=== PATIENT | male | born 1955 | race Caucasian/White ===

== ENCOUNTER 2016-07-08 06:12 | Emergency (ER) | payer BC ==
[~2016-07-08] VITALS: Ht 167.6 cm; Wt 99.8 kg
[2016-07-08 06:12] VITALS: BP 158/103; PULSE 58; RESP 16; TEMP 98; O2SAT 99
[~2016-07-08 06:12] MED LIST: ACYC200O PO
--- NOTE | 2016-07-08 06:12 | NUR ---
Patient to ER bed 1 to gown for evaluation. Side rails up. Report given to DIONISIO SANFORD.
--- NOTE | 2016-07-08 06:22 | NUR ---
Pt presents to ED with c/o sharp pain at anterior left chest, radiated to L upper back, 11/06, pain comes and goes, denies numbness, started 45 mins ago. Pt diaphoretic, ambulatory, A&Ox4, denies SOB, denies N/V/D. Pt stated he has a heart attack in the past. Skin intact. Will continue to monitor
--- NOTE | 2016-07-08 06:27 | NUR ---
MD Snider at bedside examining pt
[2016-07-08] MEDS ORDERED: NITROGLYCERIN 0.4 MG TAB.SUBL SL ONE (06:30)
[2016-07-08] MEDS ORDERED: ASPIRIN 325 MG TABLET PO ONE (06:30)
--- NOTE | 2016-07-08 06:30 | NUR ---
# 20 gauge angiocath placed to R AC. Use of asceptic technique. Opsite placed over site. Blood return noted. Blood for lab drawn from site. Flushed with 10 cc of normal saline. No evidence of infiltration noted. Patient tolerated well.
--- NOTE | 2016-07-08 06:47 | NUR ---
Consent for CT chest with contrast signed by patient. Pt verbalized understanding
[2016-07-08 06:51] LABS: CREATININE 1.57 mg/dL (0.55-1.30); POTASSIUM 4.7 mmol/L (3.5-5.1)
[2016-07-08] MEDS ORDERED: LOSA25TA11 PO (06:51)
[2016-07-08] MEDS ORDERED: DICL75TA5 PO (06:51)
[2016-07-08 06:57] LABS: TOTAL BILIRUBIN 0.8 mg/dL (0.0-1.0); TOTAL PROTEIN, SERUM 7.6 g/dL (6.4-8.3)
[2016-07-08 06:59] LABS: BASOPHILS % (AUTO) 0.7 % (0.0-2.0); EOSINOPHILS # (AUTO) 0.3 K/uL (0.0-0.4); HEMATOCRIT 47.7 % (36-54); HEMOGLOBIN 15.8 g/dL (14.0-18.0); INR 1.1 (0.80-1.20); LYMPHOCYTES # (AUTO) 2.1 K/uL (1.0-5.5); LYMPHOCYTES % (AUTO) 36.7 % (20.5-51.5); MEAN CORPUSCULAR HEMOGLOBIN 31 pg (27-31); MEAN CORPUSCULAR HGB CONC 33 % (32-36); MEAN CORPUSCULAR VOLUME 92 fL (79.0-98.0); MONOCYTES # (AUTO) 0.5 K/uL (0.0-1.0); MONOCYTES % (AUTO) 8.9 % (1.7-9.3); NEUTROPHILS # (AUTO) 2.9 K/uL (1.8-7.7); NEUTROPHILS % (AUTO) 47.7 % (40.0-70.0); PLATELET COUNT (AUTO) 212 K/uL (130-430); PROTHROMBIN TIME 11.5 SECS (9.5-12.5); RED BLOOD CELL COUNT(AUTO) 5.16 MIL/uL (4.2-6.2); RED CELL DISTRIBUTION WIDTH 12.9 % (9.0-15.0); WHITE BLOOD COUNT (AUTO) 5.8 K/uL (4.8-10.8)
[2016-07-08] MEDS ORDERED: ONDANSETRON HCL 4 MG/2 ML VIAL IVP ONE ×3 (07:00→09:30)
[2016-07-08] MEDS ORDERED: fentaNYL CITRATE/PF 100 MCG/2 ML AMP IVP ONE (07:00)
--- NOTE | 2016-07-08 07:00 | NUR ---
Medication reconciliation completed with information provided by pt. Any prior medication reconciliation on file was reviewed and corrected.
--- NOTE | 2016-07-08 07:06 | NUR ---
Report given to Cece SANFORD, care endorsed
[2016-07-08] MEDS ORDERED: IOHEXOL 350 mgI/mL, 150 ML INFUS..BTL IV ONE (07:14)
--- NOTE | 2016-07-08 07:15 | NUR ---
PT TAKEN TO CT SCAN DEPT.
[2016-07-08 07:25] LABS: CKMB RELATIVE INDEX 0.3 (0.0-2.9)
--- NOTE | 2016-07-08 07:28 | NUR ---
RETURNED TO ROOM 1, PAIN SCALE 8/10 TO CHEST AND HIS BACK.
--- NOTE | 2016-07-08 07:33 | NUR ---
DR. COLUNGA CONTACTED FOR ADMISSION. CALL FORWARDED TO DR. Bhanu MASON FOR PHYSICIAN REPORT.
--- NOTE | 2016-07-08 07:35 | NUR ---
DR. COLUNGA REFUSED ADMISSION. CASE WILL BE REFERRED TO CASE MANAGMENT DEPARTMENT.
--- NOTE | 2016-07-08 07:42 | NUR ---
DR MASON TALKING TO PT ON CT SCAN RESULT.
--- NOTE | 2016-07-08 07:44 | NUR ---
MEDICATED WITH DILAUDID [address] MASON.
[2016-07-08] MEDS ORDERED: HYDROmorphone 1 MG INJ. 1 MG/ML AMPUL IVP ONE ×2 (07:45→09:30)
--- NOTE | 2016-07-08 08:15 | NUR ---
PT SITTING UPRIGHT, STATED "IT STILL HURTS".
--- NOTE | 2016-07-08 08:35 | NUR ---
SITTING ON THE EDGE OF THE GURNEY, "I'M HOT", COLD TOWEL TO FOREHEAD AND ELECTRIC FAN PROVIDED FOR COMFORT.
[2016-07-08] MEDS ORDERED: DEXAMETHASONE SOD PHOSPHATE 10 MG/ML VIAL IVP ONE (09:30)
--- NOTE | 2016-07-08 09:33 | NUR ---
SEEN PT STANDING BY THE SO, LEANING FORWARD, VOMITING INTO A BASIN, SMALL AMOUNT OF WATERY EMESIS, DR DE DIOS AWARE, MEDS GIVEN ORDERED.
--- NOTE | 2016-07-08 10:03 | NUR ---
PT STATED "I FEEL BETTER NOW".
--- NOTE | 2016-07-08 11:15 | NUR ---
DR DE DIOS APPROACHED PT AND INFORMED HIM OF TRANSFER TO [facility].
--- NOTE | 2016-07-08 14:23 | NUR ---
REPORT GIVEN TO CLARIBEL MURRAY OF [facility], WILL BE ADMITTED TO ROOM 332.
--- NOTE | 2016-07-08 15:00 | NUR ---
ASSISTED PT TOWARDS THE BATHROOM TO URINATE AND RETURNED TO ROOM 1, NO CHEST DISCOMFORTS, FELT NAUSEATED.
--- NOTE | 2016-07-08 15:25 | NUR ---
PT SEEN TEXTING HIS FAMILY, NO COMPLAINTS OF ANYTHING.
--- NOTE | 2016-07-08 15:55 | NUR ---
PT TRANSPORTED VIA AMBULANCE TO [facility], SALINE LOCK INTACT AND PATENT IN RT A/C, 20 GAUGE, PERSONAL BELONGINGS WITH HIM, HIS GLASSES, WALLET AND CAP TAKEN HOME EARLIER BY HIS DAUGHTER.
[2016-07-08 16:25] VITALS: BP 151/106; PULSE 74; RESP 16; TEMP 98; O2SAT 94
== END 2016-07-08 15:55 | disposition short-term general hospital (02) ==
LOC: SED 06:12
DX: K44.9 Diaphragmatic hernia without obstruction or gangrene (principal); R07.89 Other chest pain; K21.9 Gastro-esophageal reflux disease without esophagitis; I10 Essential (primary) hypertension; E66.9 Obesity, unspecified; Z68.35 Body mass index [BMI] 35.0-35.9, adult; Z86.718 Personal history of other venous thrombosis and embolism
CPT/HCPCS: 36415; 71010; 71275; 80053; 80061; 82550; 82553; 83690; 83880; 84484; 85025; 85610; 85730; 93005; 96374; 96375; 96376; 99285; J1100; J1170; J2405; J3010; Q9967

== ENCOUNTER 2016-12-09 14:38 | Emergency (ER) | payer BC ==
[~2016-12-09] VITALS: Ht 167.6 cm; Wt 96.2 kg
[2016-12-09 14:38] VITALS: BP_SYST 132
[~2016-12-09 14:38] MED LIST changes: +DICL75TA5 PO; +LOSA25TA11 PO
[2016-12-09 15:13] LABS: BILIRUBIN,URINE NEGATIVE (NEGATIVE); BLOOD, URINE NEGATIVE (NEGATIVE); CLARITY/URINE CLEAR (CLEAR); COLOR,URINE YELLOW (YELLOW); GLUCOSE,URINE NEGATIVE (NEGATIVE); KETONES,URINE NEGATIVE (NEGATIVE); LEUKOCYTE ESTERASE ,URINE NEGATIVE (NEGATIVE); NITRITE, URINE NEGATIVE (NEGATIVE); PROTEIN URINE NEGATIVE (NEGATIVE); UROBILINOGEN,URINE 0.2 (0.2-1.0)
[2016-12-09] MEDS ORDERED: KETOROLAC TROMETHAMINE 30 MG VIAL IVP ONE (15:15)
[2016-12-09 15:20] LABS: BASOPHILS % (AUTO) 0.4 % (0.0-2.0); EOSINOPHILS # (AUTO) 0.1 K/uL (0.0-0.4); EOSINOPHILS % (AUTO) 2.6 % (0.0-4.0); HEMATOCRIT 41.5 % (36-54); HEMOGLOBIN 13.6 g/dL (14.0-18.0); LYMPHOCYTES # (AUTO) 1.3 K/uL (1.0-5.5); MEAN CORPUSCULAR HEMOGLOBIN 29 pg (27-31); MEAN CORPUSCULAR HGB CONC 33 % (32-36); MEAN CORPUSCULAR VOLUME 88 fL (79.0-98.0); MONOCYTES # (AUTO) 0.4 K/uL (0.0-1.0); NEUTROPHILS # (AUTO) 3.5 K/uL (1.8-7.7); PLATELET COUNT (AUTO) 171 K/uL (130-430); RED BLOOD CELL COUNT(AUTO) 4.71 MIL/uL (4.2-6.2); WHITE BLOOD COUNT (AUTO) 5.3 K/uL (4.8-10.8)
[2016-12-09 15:29] LABS: CALCIUM 8.9 mg/dL (8.4-11.0); CREATININE 1.02 mg/dL (0.55-1.30); POTASSIUM 3.9 mmol/L (3.5-5.1)
[2016-12-09 15:33] LABS: ALBUMIN 4.1 g/dL (3.4-4.8); TOTAL BILIRUBIN 1.2 mg/dL (0.0-1.0)
[2016-12-09 17:14] VITALS: BP_SYST 126
== END 2016-12-09 17:14 | disposition home or self-care (01) ==
LOC: SED 14:38
DX: R10.31 Right lower quadrant pain (principal); K21.9 Gastro-esophageal reflux disease without esophagitis; Z95.0 Presence of cardiac pacemaker; Z79.899 Other long term (current) drug therapy; Z86.718 Personal history of other venous thrombosis and embolism
CPT/HCPCS: 36415; 74176; 80053; 81003; 83690; 85025; 96374; 99285; J1885

== ENCOUNTER 2018-09-21 10:10 | Inpatient (IN) | payer BC ==
[~2018-09-21] VITALS: Ht 167.6 cm; Wt 99.8 kg
[~2018-09-21 10:10] MED LIST changes: -LOSA25TA11 PO; +LOSA25TA18 PO
[2018-09-21 10:19] VITALS: BP_SYST 140
[2018-09-21] MEDS ORDERED: IPRATROPIUM/ALBUTEROL SULFATE 3 ML AMPUL.NEB (DUONEB) INH ONE (10:45)
[2018-09-21 11:03] LABS: BASOPHILS % (AUTO) 0.7 % (0.0-2.0); EOSINOPHILS # (AUTO) 0.2 K/uL (0.0-0.4); EOSINOPHILS % (AUTO) 3.5 % (0.0-4.0); HEMATOCRIT 39.5 % (36-54); HEMOGLOBIN 13.1 g/dL (14.0-18.0); LYMPHOCYTES % (AUTO) 22.1 % (20.5-51.5); MEAN CORPUSCULAR HEMOGLOBIN 30 pg (27-31); MEAN CORPUSCULAR HGB CONC 33 % (32-36); MEAN CORPUSCULAR VOLUME 89 fL (79.0-98.0); MONOCYTES # (AUTO) 0.4 K/uL (0.0-1.0); MONOCYTES % (AUTO) 9.1 % (1.7-9.3); NEUTROPHILS # (AUTO) 3.1 K/uL (1.8-7.7); NEUTROPHILS % (AUTO) 64.6 % (40.0-70.0); PLATELET COUNT (AUTO) 187 K/uL (130-430); RED BLOOD CELL COUNT(AUTO) 4.45 MIL/uL (4.2-6.2); RED CELL DISTRIBUTION WIDTH 16.5 % (9.0-15.0); WHITE BLOOD COUNT (AUTO) 4.7 K/uL (4.8-10.8)
[2018-09-21 11:11] LABS: CALCIUM 8.7 mg/dL (8.4-11.0); CREATININE 0.95 mg/dL (0.55-1.30)
[2018-09-21 11:16] LABS: ALBUMIN 3.4 g/dL (3.4-4.8); TOTAL BILIRUBIN 1.2 mg/dL (0.0-1.0)
[2018-09-21] MEDS ORDERED: IOHEXOL 350 mgI/mL, 150 ML INFUS..BTL IV ONE (12:28)
[2018-09-21 14:48] VITALS: BP_SYST 138
[2018-09-21] MEDS ORDERED: ASPIRIN 325 MG TABLET (ECOTRIN) PO ONE (15:15)
[2018-09-21 15:30] VITALS: BP_SYST 138
[2018-09-21 19:20] VITALS: BP_SYST 137
[2018-09-21] MEDS ORDERED: OMEPRAZOLE 20 MG CAPSULE.DR (PriLOSEC) PO ONE (21:00)
[2018-09-21] MEDS ORDERED: OMEPRAZOLE 20 MG CAPSULE.DR (PriLOSEC) ONE (21:08)
[2018-09-22 00:38] VITALS: BP_SYST 127
[2018-09-22 08:37] VITALS: BP_SYST 142
[2018-09-22] MEDS ORDERED: LOSARTAN POTASSIUM 25 MG TABLET PO SCH (09:00)
[2018-09-22] MEDS ORDERED: ASPIRIN 325 MG TABLET (ECOTRIN) PO SCH (09:00)
[2018-09-22 11:52] VITALS: BP_SYST 126
[2018-09-22 12:30] VITALS: BP_SYST 126
[2018-09-22] MEDS ORDERED: OMEPRAZOLE 20 MG CAPSULE.DR (PriLOSEC) PO SCH (21:00)
== END 2018-09-22 12:50 | disposition home or self-care (01) | DRG 880 ==
LOC: SED 10:10 → STU 14:12
PROVIDERS: ADMIT Internal Medicine Hospice and Palliative Medicine; ATTEND Internal Medicine Hospice and Palliative Medicine
DX: F41.9 Anxiety disorder, unspecified (principal); K21.9 Gastro-esophageal reflux disease without esophagitis; I10 Essential (primary) hypertension; Z77.090 Contact with and (suspected) exposure to asbestos; Z96.651 Presence of right artificial knee joint; Z79.899 Other long term (current) drug therapy; Z86.718 Personal history of other venous thrombosis and embolism; Z91.19 Patient's noncompliance with other medical treatment and regimen; Z95.0 Presence of cardiac pacemaker
CPT/HCPCS: 36415; 71045; 71275; 80053; 82550-TC; 83880; 84484; 85025; 85379; 93005; 93306; 94640; 99285; G0378; J7620; Q9967

== ENCOUNTER 2019-07-07 13:38 | Inpatient (IN) | payer BC, SELFPAY ==
[~2019-07-07] VITALS: Ht 167.6 cm; Wt 91.7 kg
[~2019-07-07 13:38] MED LIST changes: -DICL75TA5 PO
[2019-07-07 13:47] VITALS: BP_SYST 128
[2019-07-07] MEDS ORDERED: HYDR200T38 PO (13:47)
[2019-07-07] MEDS ORDERED: PANT40TA4 PO (13:47)
[2019-07-07] MEDS ORDERED: PRED5TAB PO (13:47)
--- NOTE | 2019-07-07 14:00 | NUR ---
pt arrives from home w/ c/o generalized body pain. Pt is currently afebrile. Pt has arhtritis and is on medications for it. No toher c/o at the moment
--- NOTE | 2019-07-07 15:15 | NUR ---
ER at bedside examining patient.
--- NOTE | 2019-07-07 15:40 | NUR ---
# 20 gauge angiocath placed to LAC. Use of asceptic technique. Opsite placed over site. Blood return noted. Blood for lab drawn from site. Flushed with 10 cc of normal saline. No evidence of infiltration noted. Patient tolerated well.
[2019-07-07] MEDS ORDERED: NS 500 ML IV ONE (15:45)
--- NOTE | 2019-07-07 16:10 | NUR ---
NS 500ml currently infusing per MD order
--- NOTE | 2019-07-07 16:23 | NUR ---
UA collected and sent to the lab
--- NOTE | 2019-07-07 16:30 | NUR ---
EKG done and given to
[2019-07-07 16:31] LABS: BASOPHILS # (AUTO) 0.1 K/uL (0.0-0.2); BASOPHILS % (AUTO) 0.9 % (0.0-2.0); EOSINOPHILS # (AUTO) 0.2 K/uL (0.0-0.4); EOSINOPHILS % (AUTO) 2.1 % (0.0-4.0); HEMATOCRIT 40.2 % (36-54); HEMOGLOBIN 13.3 g/dL (14.0-18.0); LYMPHOCYTES # (AUTO) 0.6 K/uL (1.0-5.5); LYMPHOCYTES % (AUTO) 6.4 % (20.5-51.5); MEAN CORPUSCULAR HEMOGLOBIN 30 pg (27-31); MEAN CORPUSCULAR HGB CONC 33 % (32-36); MEAN CORPUSCULAR VOLUME 89 fL (79.0-98.0); MONOCYTES # (AUTO) 0.8 K/uL (0.0-1.0); MONOCYTES % (AUTO) 8.4 % (1.7-9.3); NEUTROPHILS # (AUTO) 7.6 K/uL (1.8-7.7); NEUTROPHILS % (AUTO) 82.2 % (40.0-70.0); PLATELET COUNT (AUTO) 167 K/uL (130-430); RED CELL DISTRIBUTION WIDTH 14.4 % (9.0-15.0); WHITE BLOOD COUNT (AUTO) 9.3 K/uL (4.8-10.8)
[2019-07-07 16:34] LABS: BILIRUBIN,URINE NEGATIVE (NEGATIVE); CLARITY/URINE CLEAR (CLEAR); COLOR,URINE YELLOW (YELLOW); GLUCOSE,URINE NEGATIVE (NEGATIVE); KETONES,URINE NEGATIVE (NEGATIVE); LEUKOCYTE ESTERASE ,URINE NEGATIVE (NEGATIVE); NITRITE, URINE NEGATIVE (NEGATIVE); PH,URINE 5.5 (5.0-8.0); PROTEIN URINE NEGATIVE (NEGATIVE); UROBILINOGEN,URINE 0.2 (0.2-1.0)
[2019-07-07 16:35] LABS: CALCIUM 8.4 mg/dL (8.4-11.0); CREATININE 1.04 mg/dL (0.55-1.30); POTASSIUM 4.2 mmol/L (3.5-5.1)
[2019-07-07 16:39] LABS: BLOOD, URINE TRACE (NEGATIVE)
[2019-07-07 16:41] LABS: INR 1.1 (0.80-1.20); PROTHROMBIN TIME 10.8 SECS (9.5-12.5)
[2019-07-07 16:45] LABS: ALBUMIN 2.8 g/dL (3.4-4.8); TOTAL BILIRUBIN 1.1 mg/dL (0.0-1.0)
[2019-07-07 16:58] LABS: BACTERIA,URINE FEW /HPF (None Seen); WBC,URINE 0-3 /HPF (0-3)
[2019-07-07] MEDS ORDERED: KETOROLAC TROMETHAMINE 30 MG VIAL IVP ONE (17:30)
--- NOTE | 2019-07-07 18:30 | NUR ---
pt will be admitted under the care of Dr. Sinha. Orders received.
--- NOTE | 2019-07-07 18:40 | NUR ---
RSV, flu, and Covid 19 collected and sent to the lab
--- NOTE | 2019-07-07 18:54 | NUR ---
Called for a Med Surg bed spoke w/ Vera
--- NOTE | 2019-07-07 19:15 | NUR ---
Medication reconciliation completed with information provided by PT. Any prior medication reconciliation on file was reviewed and corrected.
--- NOTE | 2019-07-07 19:30 | NUR ---
REPORT GIVEN TO ESTELLE SANFORD. PT IS IN STABLE CONDITION
[2019-07-07 19:34] LABS: INFLUENZA A&B ANTIGEN SCREEN NEGATIVE FOR A & B (NEGATIVE); RESPIRATORY SYNCYTIAL VIRUS NEGATIVE (NEGATIVE)
[2019-07-07] MEDS ORDERED: ONDANSETRON HCL 4 MG/2 ML VIAL IVP PRN (19:45)
[2019-07-07] MEDS ORDERED: ZOLPIDEM TARTRATE 5 MG TABLET PO PRN (19:45)
[2019-07-07] MEDS ORDERED: DOCUSATE SODIUM 100 MG CAPSULE PO PRN (19:45)
[2019-07-07] MEDS ORDERED: MAGNESIUM SULFATE 50 ML IV PRN (19:45)
[2019-07-07] MEDS ORDERED: MUPIROCIN 2% TOPICAL OINTMENT 22 GM NS PRN (19:45)
[2019-07-07] MEDS ORDERED: LORazepam 2 MG/ML VIAL IVP PRN (19:45)
[2019-07-07] MEDS ORDERED: AZITHROMYCIN 250 MG TABLET PO ONE (19:45)
[2019-07-07] MEDS ORDERED: MORPHINE SULFATE 10 MG/ML VIAL IVP PRN (19:45)
[2019-07-07] MEDS ORDERED: POTASSIUM CHLORIDE 20 MEQ TAB.PRT.SR PO PRN (19:45)
--- NOTE | 2019-07-07 21:01 | NUR ---
Transfer to [facility] via ACLS protocol. Licensed nurse present. IV present no signs or symptoms of infiltration. Addendum: 07/07/19 at 2108 by [email or web address] Transfer to Med/Surg via ACLS protocol. Licensed nurse present. IV present no signs or symptoms of infiltration.
--- NOTE | 2019-07-07 21:20 | NUR ---
ADMISSION NOTE Received patient from ER via gurney. Patient admitted with diagnosis of RULE OUT COVID. Patient is awake, alert, oriented X 2. Patient oriented to hospital room, call light, toileting, pain management and safety-teach back done. Patient informed that NACHO will be HIS nurse and that their room number is 124B. Personal belongings checked and Belongings List documented. Call light within reach.
--- NOTE | 2019-07-07 21:50 | NUR ---
INITIAL NOTE AT INITIAL ASSESSMENT PATIENT IS RESTING IN BED, STABLE, NO SIGNS OF RESPIRATORY DISTRESS. PATIENT VERBALIZES TOLERABLE PAIN. PLAN OF CARE FOR THE EVENING IS COMMUNICATED WITH THE PATIENT. PATIENT SUCCESSFULLY DEMONSTRATES CORRECT USAGE OF CALL LIGHT AT THIS TIME. BED IS LOCKED, AND AT THE LOWEST LEVEL. PATIENT REFUSES BED ALARM AT THIS TIME DESPITE SAFETY EDUCATION, HE IS NOTED WITH STEADY GAIT AT THIS TIME. CALL LIGHT IS WITHIN REACH. FALL, SAFETY, RESPIRATORY, AND ISOLATION PRECAUTIONS WILL BE TAKEN THROUGHOUT THE SHIFT.
[2019-07-07 21:58] VITALS: BP_SYST 144
[2019-07-07] MEDS: ACETAMINOPHEN 325 MG TABLET PO PRN ×2 (22:25→22:55)
[2019-07-07] MEDS: ASCORBIC ACID 500 MG TABLET PO SCH (22:25)
[2019-07-07] MEDS: PREDNISONE 5 MG TABLET PO SCH (22:25)
[2019-07-07] MEDS: HEPARIN SODIUM,PORCINE 5000 UNITS/ML VIAL SUBCUT SCH (22:26)
--- NOTE | 2019-07-07 23:39 | NUR ---
Consultation Paged Reason for Consultation: Rule out COVID 19 Was consult called: Y Person who was notified: Eunice Consulting Physician: Dr. Rivero Machine Stemmer Ordering Physician: Dr. Sinha
--- NOTE | 2019-07-07 23:50 | NUR ---
NOTE PATIENT IS RESTING IN BED, STABLE, NO SIGNS OF RESPIRATORY DISTRESS. CALL LIGHT IS WITHIN REACH. BED IS LOCKED AND AT THE LOWEST LEVEL.
[2019-07-08] VITALS: BP_SYST 130
--- NOTE | 2019-07-08 01:50 | NUR ---
NOTE PATIENT IS SLEEPING, STABLE, NO SIGNS OF RESPIRATORY DISTRESS. CALL LIGHT IS WITHIN REACH. BED IS LOCKED AND AT THE LOWEST LEVEL.
--- NOTE | 2019-07-08 03:50 | NUR ---
NOTE PATIENT IS SLEEPING, STABLE, NO SIGNS OF RESPIRATORY DISTRESS. CALL LIGHT IS WITHIN REACH. BED IS LOCKED AND AT THE LOWEST LEVEL.
--- NOTE | 2019-07-08 05:50 | NUR ---
NOTE PATIENT IS RESTING IN BED, STABLE, NO SIGNS OF RESPIRATORY DISTRESS. CALL LIGHT IS WITHIN REACH. BED IS LOCKED AND AT THE LOWEST LEVEL.
--- NOTE | 2019-07-08 05:57 | NUR ---
Consult Paged to Dr. Pope, re: rule of covid 19, ordered by Dr. Sinha
--- NOTE | 2019-07-08 06:45 | NUR ---
CLOSING NOTE PATIENT SLEPT WELL THROUGHOUT THE SHIFT. AT THIS TIME, HE IS RESTING IN BED, STABLE, NO SIGNS OF RESPIRATORY DISTRESS. CALL LIGHT IS WITHIN REACH. BED IS LOCKED, ALARMED, AND AT THE LOWEST LEVEL. FALL, SAFETY, RESPIRATORY, AND ISOLATION PRECAUTIONS HAVE BEEN TAKEN THROUGHOUT THE SHIFT. WILL CONTINUE TO MONITOR UNTIL SHIFT REPORT IS GIVEN AT BEDSIDE TO AM NURSE.
[2019-07-08 07:26] LABS: BASOPHILS % (AUTO) 0.4 % (0.0-2.0); EOSINOPHILS % (AUTO) 0.2 % (0.0-4.0); HEMATOCRIT 36.6 % (36-54); HEMOGLOBIN 12.2 g/dL (14.0-18.0); LYMPHOCYTES # (AUTO) 0.5 K/uL (1.0-5.5); LYMPHOCYTES % (AUTO) 6.5 % (20.5-51.5); MEAN CORPUSCULAR HEMOGLOBIN 30 pg (27-31); MEAN CORPUSCULAR HGB CONC 33 % (32-36); MEAN CORPUSCULAR VOLUME 89 fL (79.0-98.0); MONOCYTES % (AUTO) 12.3 % (1.7-9.3); NEUTROPHILS # (AUTO) 6.3 K/uL (1.8-7.7); NEUTROPHILS % (AUTO) 80.6 % (40.0-70.0); PLATELET COUNT (AUTO) 154 K/uL (130-430); RED BLOOD CELL COUNT(AUTO) 4.13 MIL/uL (4.2-6.2); RED CELL DISTRIBUTION WIDTH 14.4 % (9.0-15.0); WHITE BLOOD COUNT (AUTO) 7.8 K/uL (4.8-10.8)
--- NOTE | 2019-07-08 07:37 | NUR ---
Opening Note received SBAR report from shift mechanic RN, patient resting in bed, no acute distress noted, educated patient on use of call light and asked to call for assistance, patient verbalized understanding, call light in reach, educated patient on use of bed alarm for patient safety, patient refusing bed alarm, bed in low and locked position.
[2019-07-08 07:38] LABS: CREATININE 1.06 mg/dL (0.55-1.30); POTASSIUM 4.2 mmol/L (3.5-5.1)
[2019-07-08 08:00] VITALS: BP_SYST 148
[2019-07-08 08:05] LABS: C-REACTIVE PROTEIN QUANT 18.7 mg/dL (0-0.5)
[2019-07-08] MEDS: ASCORBIC ACID 500 MG TABLET PO SCH (08:30)
[2019-07-08] MEDS: PREDNISONE 5 MG TABLET PO SCH (08:30)
[2019-07-08] MEDS: AZITHROMYCIN 250 MG TABLET PO SCH (08:30)
[2019-07-08] MEDS: HYDROXYCHLOROQUINE SULFATE 200 MG TABLET PO SCH (08:31)
[2019-07-08] MEDS: HEPARIN SODIUM,PORCINE 5000 UNITS/ML VIAL SUBCUT SCH ×2 (08:32→21:19)
[2019-07-08] MEDS: PANTOPRAZOLE SODIUM 40 MG TAB PO SCH (09:35)
--- NOTE | 2019-07-08 09:46 | NUR ---
Physician Rounds Dr. Sinha at bedside examining patient.
--- NOTE | 2019-07-08 10:04 | NUR ---
Physician Rounds Dr. Garcia at bedside examining patient.
[2019-07-08] MEDS: cefTRIAXone 1 GM in D5W 50 ML IV SCH (10:35)
[2019-07-08] MEDS: MORPHINE SULFATE 10 MG/ML VIAL IVP PRN ×2 (10:42→18:41)
[2019-07-08 12:00] VITALS: BP_SYST 116
--- NOTE | 2019-07-08 12:50 | NUR ---
RN Rounds patient sitting up in bed eating lunch, respirations even and unlabored on room air, no acute distress noted, patient reports pain is controlled at this time.
--- NOTE | 2019-07-08 13:41 | NUR ---
Discharge Planning: QUALITY MEASUREMENT SPECIALIST attempted to complete discharge plan assessment. QUALITY MEASUREMENT SPECIALIST phoned pt's room, no answer. QUALITY MEASUREMENT SPECIALIST phoned pt's dtr, Ryann ([phone]), QUALITY MEASUREMENT SPECIALIST left a message for pt's dtr.
--- NOTE | 2019-07-08 16:35 | NUR ---
RN Rounds patient resting in bed, respirations even and unlabored on room air, no acute distress noted, patient reports pain is controlled at this time.
[2019-07-08 18:45] VITALS: BP_SYST 119
--- NOTE | 2019-07-08 18:48 | NUR ---
RN Rounds patient sitting up in bed eating dinner, tolerating well, no acute distress noted, respirations even and unlabored on room air.
--- NOTE | 2019-07-08 19:12 | NUR ---
Closing Note SBAR report given to private tutor RN, patient resting in bed, respirations even and unlabored on room air, patient reports pain is controlled, no acute distress noted, educated patient on use of call light and asked to call for assistance, patient verbalized understanding, call light in reach, educated patient on use of bed alarm for patient safety, patient refusing bed alarm, bed in low and locked position, care endorsed to private tutor RN.
[2019-07-08 20:00] VITALS: BP_SYST 113
--- NOTE | 2019-07-08 20:49 | NUR ---
Paged Dr. Sinha [phone],Dr Sinha answered
--- NOTE | 2019-07-08 21:15 | NUR ---
COMMUNICATION WITH DR. MARVEL GRIER HAS PAGED BACK AT THIS TIME, PATIENT'S REQUEST FOR TORADOL INSTEAD OF MORPHINE AND SORE THROAT COMPLAINT COMMUNICATED. GAVE NEW ORDERS. ORDERS READ BACK, VERIFIED, AND ENTERED. WILL BE GIVEN TO PATIENT SOON APPROVED BY PHARMACY.
[2019-07-08] MEDS: BENZOCAINE/MENTHOL 1 EACH LOZENGE MM PRN (21:20)
[2019-07-08] MEDS: KETOROLAC TROMETHAMINE 30 MG VIAL IVP PRN (21:21)
--- NOTE | 2019-07-08 21:45 | NUR ---
NOTE SCHEDULED MEDICATION GIVEN. PRN MEDICATION FOR PAIN AND SORE THROAT ALSO GIVEN. AT THIS TIME, PATIENT IS RESTING IN BED, STABLE, NO SIGNS OF RESPIRATORY DISTRESS. CALL LIGHT IS WITHIN REACH. BED IS LOCKED AND AT THE LOWEST LEVEL.
--- NOTE | 2019-07-08 23:45 | NUR ---
NOTE PATIENT IS RESTING IN BED, STABLE, NO SIGNS OF RESPIRATORY DISTRESS. CALL LIGHT IS WITHIN REACH. BED IS LOCKED AND AT THE LOWEST LEVEL.
[2019-07-09] VITALS: BP_SYST 120
--- NOTE | 2019-07-09 01:30 | NUR ---
NOTE PATIENT IS SLEEPING, STABLE, NO SIGNS OF RESPIRATORY DISTRESS. CALL LIGHT IS WITHIN REACH. BED IS LOCKED AND AT THE LOWEST LEVEL.
[2019-07-09] MEDS: BENZOCAINE/MENTHOL 1 EACH LOZENGE MM PRN (03:16)
--- NOTE | 2019-07-09 03:30 | NUR ---
NOTE PATIENT IS SLEEPING, STABLE, NO SIGNS OF RESPIRATORY DISTRESS. CALL LIGHT IS WITHIN REACH. BED IS LOCKED AND AT THE LOWEST LEVEL.
--- NOTE | 2019-07-09 05:30 | NUR ---
NOTE PATIENT IS SLEEPING, STABLE, NO SIGNS OF RESPIRATORY DISTRESS. CALL LIGHT IS WITHIN REACH. BED IS LOCKED AND AT THE LOWEST LEVEL.
--- NOTE | 2019-07-09 06:27 | NUR ---
CLOSING NOTE PATIENT VERBALIZED HE EXPERIENCED "SO MUCH MORE RELIEF" FROM TORADOL AND CEPACOL DURING THE NIGHT. HE SLEPT WELL THROUGHOUT THE SHIFT. AT THIS TIME, HE IS RESTING IN BED, STABLE, NO SIGNS OF RESPIRATORY DISTRESS. CALL LIGHT IS WITHIN REACH. BED IS LOCKED, ALARMED, AND AT THE LOWEST LEVEL. FALL, SAFETY, RESPIRATORY, AND ISOLATION PRECAUTIONS HAVE BEEN TAKEN THROUGHOUT THE SHIFT. WILL CONTINUE TO MONITOR UNTIL SHIFT REPORT IS GIVEN AT BEDSIDE TO AM NURSE.
--- NOTE | 2019-07-09 07:15 | NUR ---
Received patient from [facility] nurse. Patient in no acute distress. Sleeping. Side rails x 3 up. Call light with in reach.
[2019-07-09 08:00] VITALS: BP_SYST 119
--- NOTE | 2019-07-09 08:05 | NUR ---
Renal CONSULTATION PAGED/CALLED Reason for Consultation: hyponatremia Person Who was Notified: Vicky Consulting Physician: Dr. Neal/[place] patient registration clerk Real Estate Broker Associate Specialty: scientific informatics analyst Ordering Physician: Dr. Sinha
[2019-07-09 08:14] LABS: CALCIUM 8.1 mg/dL (8.4-11.0); CREATININE 1.13 mg/dL (0.55-1.30); POTASSIUM 3.9 mmol/L (3.5-5.1)
[2019-07-09 08:34] LABS: C-REACTIVE PROTEIN QUANT 17.5 mg/dL (0-0.5)
[2019-07-09] MEDS: PREDNISONE 5 MG TABLET PO SCH (08:46)
[2019-07-09] MEDS: PANTOPRAZOLE SODIUM 40 MG TAB PO SCH (08:47)
[2019-07-09] MEDS: AZITHROMYCIN 250 MG TABLET PO SCH (08:47)
[2019-07-09] MEDS: ASCORBIC ACID 500 MG TABLET PO SCH (08:48)
[2019-07-09] MEDS: HYDROXYCHLOROQUINE SULFATE 200 MG TABLET PO SCH (08:48)
[2019-07-09] MEDS: HEPARIN SODIUM,PORCINE 5000 UNITS/ML VIAL SUBCUT SCH ×2 (08:53→20:59)
[2019-07-09] MEDS: cefTRIAXone 1 GM in D5W 50 ML IV SCH (09:15)
--- NOTE | 2019-07-09 09:15 | NUR ---
Patient in bed eating breakfast awake, alert, oriented. Side rails x 3 up. Call light with in reach. In no acute distress.
[2019-07-09 09:43] LABS: BASOPHILS % (AUTO) 0.3 % (0.0-2.0); EOSINOPHILS % (AUTO) 0.3 % (0.0-4.0); HEMATOCRIT 38.3 % (36-54); HEMOGLOBIN 12.9 g/dL (14.0-18.0); LYMPHOCYTES # (AUTO) 0.4 K/uL (1.0-5.5); LYMPHOCYTES % (AUTO) 6.2 % (20.5-51.5); MEAN CORPUSCULAR HEMOGLOBIN 30 pg (27-31); MEAN CORPUSCULAR HGB CONC 34 % (32-36); MEAN CORPUSCULAR VOLUME 88 fL (79.0-98.0); MONOCYTES # (AUTO) 0.7 K/uL (0.0-1.0); MONOCYTES % (AUTO) 10.5 % (1.7-9.3); NEUTROPHILS # (AUTO) 5.5 K/uL (1.8-7.7); NEUTROPHILS % (AUTO) 82.7 % (40.0-70.0); PLATELET COUNT (AUTO) 143 K/uL (130-430); RED BLOOD CELL COUNT(AUTO) 4.36 MIL/uL (4.2-6.2); RED CELL DISTRIBUTION WIDTH 14.6 % (9.0-15.0); WHITE BLOOD COUNT (AUTO) 6.7 K/uL (4.8-10.8)
[2019-07-09] MEDS ORDERED: SODIUM CHLORIDE 500 MG TABLET PO ONE (09:45)
--- NOTE | 2019-07-09 10:00 | NUR ---
Left AC IV insertion not patent. Removed IV insertion from left AC. Inserted new IV site 22 gauge left wrist, patent with no swelling or redness.
--- NOTE | 2019-07-09 11:15 | NUR ---
Patient in bed awake, alert, oriented. Side rails x 3 up. Call light with in reach. In no acute distress.
[2019-07-09 12:00] VITALS: BP_SYST 97
--- NOTE | 2019-07-09 13:00 | NUR ---
Left wrist IV insertion not in place, patient stated doesn't know how that happened. Removed dressing and place C/D/I dressing over old iv insertion site.
--- NOTE | 2019-07-09 13:15 | NUR ---
Patient in bed awake, alert, oriented eating lunch. Side rails x 3 up. Call light with in reach. In no acute distress.
--- NOTE | 2019-07-09 15:15 | NUR ---
Patient in bed awake, alert, oriented. Side rails x 3 up. Call light with in reach. In no acute distress.
[2019-07-09 16:00] VITALS: BP_SYST 96
--- NOTE | 2019-07-09 16:13 | NUR ---
Attempted to place IV insertion x 2. Will endorse to oncoming shift nurse.
--- NOTE | 2019-07-09 17:15 | NUR ---
Patient in bed awake, alert, oriented. Side rails x 3 up. Call light with in reach. In no acute distress.
--- NOTE | 2019-07-09 19:15 | NUR ---
Endorsed patient and gave report to oncoming shift nurse. Patient in bed, awake, alert, and oriented in no acute distress. Breathing even and unlabored. Denies pain. Side rails x 3 up. Call light with in reach.
--- NOTE | 2019-07-09 19:45 | NUR ---
INITIAL NOTES: pt is awake, alert, oriented x 4, sitting on edge of bed. no distress, no sob, stable vital sign, no pain at this time. start new iv to right ac gauge 20-good blood return., done aseptically. pt tolerate well. explained to pt robin of care. pt verbalized understand.on covid isolation. needs attended, call light in reach. low bed position. will follow-up.
[2019-07-09 20:00] VITALS: BP_SYST 111
[2019-07-09] MEDS: KETOROLAC TROMETHAMINE 30 MG VIAL IVP PRN (21:19)
--- NOTE | 2019-07-09 21:30 | NUR ---
pt is complain of chills, shivering. he also stated after chills, he will have night sweats, check temp twice- 98.4.
--- NOTE | 2019-07-09 22:00 | NUR ---
sleeping on his side. no pain. stable. maintained on isolation. will follow-up.
[2019-07-10] VITALS (8 sets, daily range): BP systolic 95–118
--- NOTE | 2019-07-10 | NUR ---
pt is on bed, awake, alert, no pain, stable vital sign. put pt on o2 monitor. needs attended. will minotor.
--- NOTE | 2019-07-10 02:00 | NUR ---
sleeping, no sign of distress. o2 sat at 96%, call light in reach. will monitor.
--- NOTE | 2019-07-10 04:00 | NUR ---
sleeping, no distress, no sign of pain, stable. call light with the pt.
--- NOTE | 2019-07-10 06:17 | NUR ---
pt is awake, in bed, stable, no pain. call to adjust room ac.
--- NOTE | 2019-07-10 07:13 | NUR ---
closing: pt is on bed, awake, alert, no pain. no sob, stable. needs attended the whole shift. call light in reach. maitained on covid isolation. report given to barb mallory.
[2019-07-10 07:30] LABS: BASOPHILS % (AUTO) 0.3 % (0.0-2.0); EOSINOPHILS % (AUTO) 0.4 % (0.0-4.0); HEMATOCRIT 35.8 % (36-54); LYMPHOCYTES # (AUTO) 0.5 K/uL (1.0-5.5); LYMPHOCYTES % (AUTO) 8.3 % (20.5-51.5); MEAN CORPUSCULAR HEMOGLOBIN 30 pg (27-31); MEAN CORPUSCULAR HGB CONC 34 % (32-36); MEAN CORPUSCULAR VOLUME 88 fL (79.0-98.0); MONOCYTES # (AUTO) 0.7 K/uL (0.0-1.0); MONOCYTES % (AUTO) 12.4 % (1.7-9.3); NEUTROPHILS # (AUTO) 4.3 K/uL (1.8-7.7); NEUTROPHILS % (AUTO) 78.6 % (40.0-70.0); PLATELET COUNT (AUTO) 130 K/uL (130-430); RED BLOOD CELL COUNT(AUTO) 4.06 MIL/uL (4.2-6.2); RED CELL DISTRIBUTION WIDTH 14.5 % (9.0-15.0); WHITE BLOOD COUNT (AUTO) 5.5 K/uL (4.8-10.8)
[2019-07-10 07:35] LABS: CALCIUM 8.2 mg/dL (8.4-11.0); CREATININE 0.99 mg/dL (0.55-1.30); POTASSIUM 3.8 mmol/L (3.5-5.1)
[2019-07-10] MEDS: HYDROXYCHLOROQUINE SULFATE 200 MG TABLET PO SCH (08:12)
[2019-07-10] MEDS: ASCORBIC ACID 500 MG TABLET PO SCH (08:13)
[2019-07-10] MEDS: PANTOPRAZOLE SODIUM 40 MG TAB PO SCH (08:13)
[2019-07-10] MEDS: PREDNISONE 5 MG TABLET PO SCH (08:13)
[2019-07-10] MEDS: AZITHROMYCIN 250 MG TABLET PO SCH (08:13)
[2019-07-10] MEDS: HEPARIN SODIUM,PORCINE 5000 UNITS/ML VIAL SUBCUT SCH ×2 (08:14→20:21)
[2019-07-10] MEDS: KETOROLAC TROMETHAMINE 30 MG VIAL IVP PRN ×2 (08:26→20:19)
[2019-07-10 08:56] LABS: C-REACTIVE PROTEIN QUANT 18.1 mg/dL (0-0.5)
[2019-07-10] MEDS: cefTRIAXone 1 GM in D5W 50 ML IV SCH (10:23)
--- NOTE | 2019-07-10 10:30 | NUR ---
TSB/COMFORT Patient verbalized feels warm and sweating after dose of Toradol denies any shortness of breath, no rashes, afebrile, warm water sponge bath given , mild sore throat refused for lozenges ,oral care with warm water with salt done , all sheets changed, vitals sign within normal limits, kept on droplet/contact isolation ,educate patient on proper hygiene/handwashing, verbalized understanding.
--- NOTE | 2019-07-10 11:00 | NUR ---
Patient verbalized relief of sore throat after mouthwash with warm water with salt, educated patient frequent oral hygiene,handwashing, proper disposal of waste verbalized understanding, due antibiotic completed with out adverse reaction.
--- NOTE | 2019-07-10 13:30 | NUR ---
PATIENT RESTING: Patient resting quietly. No acute distress noted.
--- NOTE | 2019-07-10 14:15 | NUR ---
Paged the assembler seat Dr. LILLY for hyponatremia.
--- NOTE | 2019-07-10 14:59 | NUR ---
Dr. Sinha informed regarding lad result hyponatremia , negative Covid test, cloth roll winder/ID doctor both informed , isolation discontinued, IV fluid NORMAL SALINE ordered by cloth roll winder.
[2019-07-10] MEDS: NACL 0.9% 1,000 ML IV SCH (15:03)
--- NOTE | 2019-07-10 17:30 | NUR ---
Transfer patient to room 100B isolation discontinued,needs attended.
--- NOTE | 2019-07-10 19:15 | NUR ---
change of shift.pt.presents quiescent affect;calm,resting.pt.presents iv access intact;patent iv fluids infusing.respiratory status stable;unlabored@room air.general status stable,respiratory status stable;unlabored@room air.pt.capable to reposition self.call light/telephone w/in reach of the pt.
--- NOTE | 2019-07-10 20:00 | NUR ---
pt.assessed.v/s assessed.values w/in normal limits.iv access intact;patent iv fluids infusing.pt.had inquired if the pain medication is due;to review the [email or web address] med-list.i have apprised the pt.that snacks/beverages are available w/in the shift.pt.requested hot water.i have provided the cup;hot water.general status stable.respiratory status stable;unlabored@room air.pt.capable to reposition self.call light/telephone w/in reach of the pt.
--- NOTE | 2019-07-10 20:30 | NUR ---
i have administered toradol;30mg ivp;pain.to re-assess the efficacy of the pain medication per pain mgx protocol. no additional requests posited@this hour.
--- NOTE | 2019-07-10 22:00 | NUR ---
pt.assessed.pt.presents quiescent affect;calm,resting .pt.requested pudding.i have provided the pudding.no c/o pain,nausea. iv acces intact;patent.general status stable.respiratory status stable;unlabored@room air.call light/telephone w/in reach of the pt.
--- NOTE | 2019-07-11 | NUR ---
pt.assessed.v/s assessed values w/in normal limits.no c/o pain,nausea.no requests posited@this hour.pt.presents quiescent affect calm.resting. iv access intact;patent iv fluids infusing.respiratory status stable;unlabored.pt.capable to reposition self.call light/telephone w/in reach of the pt.
--- NOTE | 2019-07-11 02:00 | NUR ---
pt.assessed.pt.presents quiescent affect;calm,somnolent.iv access intact;patent iv fluids infusing.general status stable. respiratory status stable;unlabored.pt.capable to reposition self.call light/telephone w/in reach of the pt.
[2019-07-11 06:10] LABS: BASOPHILS % (AUTO) 0.3 % (0.0-2.0); EOSINOPHILS # (AUTO) 0.1 K/uL (0.0-0.4); EOSINOPHILS % (AUTO) 1.2 % (0.0-4.0); HEMATOCRIT 33.8 % (36-54); HEMOGLOBIN 11.3 g/dL (14.0-18.0); LYMPHOCYTES # (AUTO) 0.5 K/uL (1.0-5.5); LYMPHOCYTES % (AUTO) 9.1 % (20.5-51.5); MEAN CORPUSCULAR HEMOGLOBIN 29 pg (27-31); MEAN CORPUSCULAR HGB CONC 33 % (32-36); MEAN CORPUSCULAR VOLUME 88 fL (79.0-98.0); MONOCYTES # (AUTO) 0.8 K/uL (0.0-1.0); MONOCYTES % (AUTO) 14.3 % (1.7-9.3); NEUTROPHILS % (AUTO) 75.1 % (40.0-70.0); PLATELET COUNT (AUTO) 135 K/uL (130-430); RED BLOOD CELL COUNT(AUTO) 3.85 MIL/uL (4.2-6.2); RED CELL DISTRIBUTION WIDTH 14.6 % (9.0-15.0); WHITE BLOOD COUNT (AUTO) 5.3 K/uL (4.8-10.8)
[2019-07-11 06:21] LABS: POTASSIUM 3.7 mmol/L (3.5-5.1)
--- NOTE | 2019-07-11 06:40 | NUR ---
pt.assessed.pt.presents quiescent affect;calm,resting.iv access intact;patent.iv fluids infusing.no c/o pain,nausea.general status stable.respiratory status stable;unlabored.pt.capable to reposition self.call light/telephone w/in reach of the pt.
--- NOTE | 2019-07-11 07:25 | NUR ---
OPENING NOTE RECEIVED BEDSIDE SBAR FROM NIGHT RN, PATIENT IN BED, EYES CLOSED,RESPIRATIONS EVEN, NON LABORED, BED IN LOW AND LOCKED POSITION, CALL LIGHT WITHIN REACH, BED ALARM ON
[2019-07-11 08:00] VITALS: BP_SYST 99
[2019-07-11] MEDS ORDERED: SODIUM CHLORIDE 500 MG TABLET PO SCH (09:00)
[2019-07-11] MEDS: ASCORBIC ACID 500 MG TABLET PO SCH (09:30)
[2019-07-11] MEDS: PREDNISONE 5 MG TABLET PO SCH (09:30)
[2019-07-11] MEDS: AZITHROMYCIN 250 MG TABLET PO SCH (09:30)
[2019-07-11] MEDS: PANTOPRAZOLE SODIUM 40 MG TAB PO SCH (09:30)
[2019-07-11] MEDS: HEPARIN SODIUM,PORCINE 5000 UNITS/ML VIAL SUBCUT SCH (09:35)
[2019-07-11] MEDS: HYDROXYCHLOROQUINE SULFATE 200 MG TABLET PO SCH (09:43)
--- NOTE | 2019-07-11 10:00 | NUR ---
NURSE NOTES PATIENT IN BED EYES CLOSED, RESPIRATIONS EVEN, NON LABORED, BED IN LOW AND LOCKED POSITION, CALL LIGHT WITHIN REACH
[2019-07-11] MEDS: NACL 0.9% 1,000 ML IV SCH (10:30)
[2019-07-11] MEDS: cefTRIAXone 1 GM in D5W 50 ML IV SCH (11:37)
[2019-07-11 11:55] VITALS: BP_SYST 99
[2019-07-11 12:00] VITALS: BP_SYST 106
--- NOTE | 2019-07-11 13:15 | NUR ---
DISCHARGE PROVIDED PATIENT WITH DISCHARGE PACKET AND INSTRUCTIONS, PATIENT VERBALIZED UNDERSTANDING, IV CATHETER REMOVED, CATHETER INTACT, NO BLEEDING, STEADY GAIT NOTED, NO ACUTE DISTRESS NOTED, PATIENT STATES NO PAIN, ALL BELONGINGS SENT HOME WITH PATIENT, PATIENT TAKEN TO PARKING LOT VIA WHEELCHAIR.
--- NOTE | 2019-07-11 14:26 | NUR ---
Ocean Export Coordinator: met with pt. to conduct a DCPA and Socia Work Assessement. TABLEAU ANALYST was experiencing difficulties trying to reach pt. TABLEAU ANALYST had to conduct the assessments over the phone due to the Covid 19 Virus. TABLEAU ANALYST tried several times calling the room phone extension, [phone] as well as [phone] as well as pts. phone number wit no luck. TABLEAU ANALYST called Rn [phone] and spoke to Cristhian who informed TABLEAU ANALYST that pt. was discharged at 1:15. TABLEAU ANALYST thanked her for the info.
[2019-07-11 15:11] LABS: URINE SODIUM, RANDOM 17 mmol/L (40-220)
[2019-07-12] MEDS ORDERED: DOXY100C PO (08:56)
== END 2019-07-11 13:15 | disposition home or self-care (01) | DRG 643 ==
LOC: SED 13:38 → SMU 18:33 → EEVIPCON 18:33 → SMU 19:51
PROVIDERS: ADMIT General Practice; ATTEND General Practice
DX: E22.2 Syndrome of inappropriate secretion of antidiuretic hormone (principal); J12.9 Viral pneumonia, unspecified; E87.3 Alkalosis; B34.9 Viral infection, unspecified; G89.29 Other chronic pain; K21.9 Gastro-esophageal reflux disease without esophagitis; M06.9 Rheumatoid arthritis, unspecified; K44.9 Diaphragmatic hernia without obstruction or gangrene; M62.89 Other specified disorders of muscle; Z79.52 Long term (current) use of systemic steroids; Z79.899 Other long term (current) drug therapy
CPT/HCPCS: 36415; 36600; 71045; 80048; 80053; 81000-TC; 82550-TC; 82570-TC; 82728; 82803-TC; 83036; 83605; 83615-TC; 83735-TC; 83930-TC; 83935-TC; 84302-TC; 84484; 85025; 85610-TC; 85730-TC; 86140; 86710; 87040-TC; 87086; 87420; 93005; 96361; 96374; 99285; J0696; J1644; J1885; J2270; J3475; J7030; J7040; J7060; J7512; Q0144

== ENCOUNTER 2023-02-03 23:00 | Emergency (ER) | payer BC ==
[~2023-02-03] VITALS: Ht 167.6 cm; Wt 102.1 kg
[~2023-02-03 23:00] MED LIST changes: -ACYC200O PO; +DOXY100C PO; +HYDR200T38 PO; -LOSA25TA18 PO; +PANT40TA45 PO; +PRED5TAB PO
[2023-02-03 23:43] VITALS: BP_SYST 148; PULSE 74; RESP 18; TEMP 98.3; O2SAT 95
[2023-02-04] MEDS ORDERED: BENZ100C92 PO (01:15)
[2023-02-04] MEDS ORDERED: PRED20TA PO (01:15)
[2023-02-04] MEDS ORDERED: GUAI5SYR PO (01:15)
[2023-02-04] MEDS ORDERED: ALBMDI INH (01:15)
[2023-02-04] MEDS ORDERED: ZIT250 PO (01:15)
[2023-02-04] MEDS ORDERED: guaiFENesin 200 MG/10 ML UDC PO ONE (01:30)
[2023-02-04] MEDS ORDERED: AZITHROMYCIN 250 MG TABLET PO ONE (01:30)
[2023-02-04] MEDS ORDERED: guaiFENesin/DEXTROMETHORPHAN 1 EACH TAB.ER.12H PO ONE (01:30)
[2023-02-04 01:34] LABS: INFLUENZA TYPE A Negative (NEGATIVE); INFLUENZA TYPE B NEGATIVE (NEGATIVE)
[2023-02-04 01:48] VITALS: BP_SYST 148; PULSE 74; RESP 18; TEMP 98.3; O2SAT 95
== END 2023-02-04 01:48 | disposition home or self-care (01) ==
LOC: SED 23:00
DX: J20.9 Acute bronchitis, unspecified (principal); R05.9 Cough, unspecified; R09.81 Nasal congestion; J02.9 Acute pharyngitis, unspecified; I10 Essential (primary) hypertension; K21.9 Gastro-esophageal reflux disease without esophagitis; Z79.899 Other long term (current) drug therapy; Z20.822 Contact with and (suspected) exposure to COVID-19
CPT/HCPCS: 99284; 87426; 36415; 87804 ×2; 71046; Q0144

== ENCOUNTER 2023-05-01 07:48 | Emergency (ER) | payer BC ==
[~2023-05-01] VITALS: Ht 167.6 cm; Wt 102.1 kg
[~2023-05-01 07:48] MED LIST changes: +ALBMDI INH; +BENZ100C92 PO; +GUAI5SYR PO; +PRED20TA PO; +ZIT250 PO
[2023-05-01 07:54] VITALS: BP_SYST 157; PULSE 86; RESP 22; TEMP 97.9; O2SAT 94
[2023-05-01 08:45] LABS: BASOPHILS % (AUTO) 0.3 % (0.0-2.0); EOSINOPHILS # (AUTO) 0.1 K/uL (0.0-0.4); EOSINOPHILS % (AUTO) 1.6 % (0.0-4.0); HEMATOCRIT 41.8 % (36-54); HEMOGLOBIN 14.3 g/dL (14.0-18.0); LYMPHOCYTES # (AUTO) 0.4 K/uL (1.0-5.5); LYMPHOCYTES % (AUTO) 9.3 % (20.5-51.5); MEAN CORPUSCULAR HEMOGLOBIN 32 pg (27-31); MEAN CORPUSCULAR HGB CONC 34 % (32-36); MEAN CORPUSCULAR VOLUME 93 fL (79.0-98.0); MONOCYTES # (AUTO) 0.5 K/uL (0.0-1.0); MONOCYTES % (AUTO) 12.2 % (1.7-9.3); NEUTROPHILS # (AUTO) 3.3 K/uL (1.8-7.7); NEUTROPHILS % (AUTO) 76.6 % (40.0-70.0); PLATELET COUNT (AUTO) 131 K/uL (130-430); RED CELL DISTRIBUTION WIDTH 13.2 % (9.0-15.0); WHITE BLOOD COUNT (AUTO) 4.4 K/uL (4.8-10.8)
[2023-05-01 09:06] LABS: CALCIUM 8.8 mg/dL (8.4-11.0); CREATININE 1.13 mg/dL (0.55-1.30); POTASSIUM 4.1 mmol/L (3.5-5.1)
[2023-05-01] MEDS ORDERED: CEFU250T85 PO (09:50)
[2023-05-01 10:02] VITALS: BP_SYST 148; PULSE 66; RESP 19; TEMP 98.6; O2SAT 95
== END 2023-05-01 10:04 | disposition home or self-care (01) ==
LOC: SED 07:48
DX: J69.0 Pneumonitis due to inhalation of food and vomit (principal); K21.9 Gastro-esophageal reflux disease without esophagitis; I10 Essential (primary) hypertension; R05.9 Cough, unspecified; R07.9 Chest pain, unspecified; Z79.899 Other long term (current) drug therapy
CPT/HCPCS: 36415; 71046-TC; 80048; 85025; 99284